=== PATIENT | female | born 1960 | race Caucasian/White ===

== ENCOUNTER 2017-09-18 10:13 | Emergency (ER) | payer BC ==
[~2017-09-18] VITALS: Ht 160 cm; Wt 67.0 kg
[2017-09-18 10:17] VITALS: BP 174/75; PULSE 80; RESP 16; TEMP 98
[2017-09-18] MEDS ORDERED: CIPR-9 PO (11:09)
--- NOTE | 2017-09-18 11:09 | PD ---
HPI Chief Complaint: GI Complaint Time Seen by Provider: 10:47 Travel History International Travel<30 days: No Contact w/Intl Traveler<30days: No Traveled to known affect area: No History of Present Illness HPI 57-year-old female complains of abdominal cramping, frequent stool and nausea. Patient states that she ate undercooked chicken 4 days ago. Patient states that she had a bloody bowel movement 4 days ago but not since then. Patient states that she has abdominal cramping with loose stool when she eats. Patient denies any fever chills. Patient denies any chest pain or shortness of breath. Patient denies any dysuria or frequency. PFSH Past Medical History Medical History: Denies Significant Hx ?: Not Past Surgical History Surgical History: No Previous Surgery Social History Alcohol Use: No Tobacco Use: No Substance Use: No Allergies-Medications (Allergen,Severity, Reaction): Coded Allergies: No Known Allergies (Unverified , 09/18/17) Reported Meds & Prescriptions Reported Meds & Active Scripts Active Cipro (Ciprofloxacin HCl) 500 Mg Tab 500 Mg PO BID Review of Systems General / Constitutional: No: Fever Eyes: No: Visual changes HENT: No: Headaches Cardiovascular: No: Chest Pain or Discomfort Respiratory: No: Shortness of Breath Gastrointestinal: Positive: Diarrhea, Abdominal Pain, Hematochezia Genitourinary: No: Dysuria Musculoskeletal: No: Pain Skin: No Rash Neurologic: No: Weakness Psychiatric: No: Depression Endocrine: No: Polydipsia Hematologic/Lymphatic: No: Easy Bruising Physical Exam Narrative GENERAL: Well-nourished, well-developed patient. SKIN: Focused skin assessment warm/dry. HEAD: Normocephalic. EYES: No scleral icterus. No injection or drainage. NECK: Supple, trachea midline. No JVD or lymphadenopathy. CARDIOVASCULAR: Regular rate and rhythm without murmurs, gallops, or rubs. RESPIRATORY: Breath sounds equal bilaterally. No accessory muscle use. GASTROINTESTINAL: Abdomen soft, non-tender, nondistended. MUSCULOSKELETAL: No cyanosis, or edema. BACK: Nontender without obvious deformity. No CVA tenderness. Neurologic exam normal. Data Data Last Documented VS Vital Signs Date Time Temp Pulse Resp B/P (MAP) Pulse Ox O2 Delivery O2 Flow Rate FiO2 09/18/17 10:20 16 09/18/17 10:17 98.0 80 174/75 (108) Room Air Orders Orders Ed Discharge Order (09/18/17 11:09) MDM Medical Decision Making Medical Screen Exam Complete: Yes Emergency Medical Condition: Yes Differential Diagnosis Differential diagnosis including gastroenteritis, Salmonella, Campylobacter. Narrative Course 57-year-old female with intermittent abdominal cramping with eating and loose stool. Patient ate undercooked chicken recently. Diagnosis Primary Impression: Gastroenteritis Patient Instructions: General Instructions Additional Instructions: Advised patient BRAT diet. Cipro if symptoms persist. Return if worse. Med/Other Pt SpecificInfo: Prescription(s) given Scripts Ciprofloxacin (Cipro) 500 Mg Tab 500 MG PO BID for Infection, #14 TAB 0 Refills Prov: Kalyan Prieto MD 09/18/17 Disposition: 01 DISCHARGE HOME Condition: Stable Kalyan Prieto MD Sep 18, 2017 11:09
== END 2017-09-18 11:29 | disposition home or self-care (01) ==
LOC: PHED 10:13
DX: K52.9 Noninfective gastroenteritis and colitis, unspecified (principal)
CPT/HCPCS: 99283